=== PATIENT | female | born 1950 | race African-American/Black ===

== ENCOUNTER 2018-02-27 04:10 | Emergency (ER) | payer MEDICARE, OTHER ==
[~2018-02-27] VITALS: Ht 160 cm; Wt 59.6 kg
[2018-02-27] MEDS ORDERED: ASPIRIN 81 MG CHEW TAB PO STA (04:29)
[2018-02-27] MEDS ORDERED: BENICAR20 MG PO (04:46)
[2018-02-27] MEDS ORDERED: ATENOLOL50 MG PO (04:46)
[2018-02-27] MEDS ORDERED: AMLODIPINE BESY10 MG PO (04:46)
[2018-02-27 05:22] VITALS: BP 158/90
== END 2018-02-27 05:34 | disposition home or self-care (01) ==
LOC: FSED 04:10
DX: R00.2 Palpitations (principal); I10 Essential (primary) hypertension
CPT/HCPCS: 71046; 80053; 81003; 82553; 83880; 84484; 85025; 93005; 99284

== ENCOUNTER 2018-04-11 05:26 | Emergency (ER) | payer MEDICARE ==
[~2018-04-11] VITALS: Ht 160 cm; Wt 59.4 kg
[~2018-04-11 05:26] MED LIST: AMLODIPINE BESY10 MG PO; ATENOLOL50 MG PO; BENICAR20 MG PO
== END 2018-04-11 06:19 | disposition home or self-care (01) ==
LOC: FSED 05:26
DX: I10 Essential (primary) hypertension (principal); Z78.0 Asymptomatic menopausal state
CPT/HCPCS: 99282

== ENCOUNTER 2018-10-13 23:30 | Emergency (ER) | payer MEDICARE ==
[~2018-10-13] VITALS: Ht 160 cm; Wt 59.4 kg
--- OUTSIDE RECORDS SUMMARY | 2018-10-13 23:34 | XMS REPORT ---
Author Author [facility] Address Unknown Phone Unavailable Care Team Providers Care Time Study Engineer Name Role Phone Unavailable Unavailable Payers Payer Name Policy Type Policy Number Effective Date Expiration Date Problems This patient has no known problems. Allergies, Adverse Reactions, Alerts Allergy Name Allergy Type Status Severity Reaction(s) Onset Date Inactive Date Treating Clinician Comments psyllium seed DA Active U 2011-11-16 00:00:00 sucrose DA Active U 2011-11-16 00:00:00 psyllium husk DA Active U 2011-11-16 00:00:00 dextrose DA Active U 2011-11-16 00:00:00 tetracycline DA Active U 2011-11-16 00:00:00 psyllium DA Active U 2011-11-16 00:00:00 LACTOSE DA Active U 2009-04-10 00:00:00 Medications This patient has no known medications.
== END 2018-10-14 01:38 | disposition home or self-care (01) ==
LOC: FSED 23:30
DX: R00.2 Palpitations (principal); I10 Essential (primary) hypertension; Z88.8 Allergy status to other drugs, medicaments and biological substances; F17.210 Nicotine dependence, cigarettes, uncomplicated; R20.2 Paresthesia of skin
CPT/HCPCS: 93005; 99283

== ENCOUNTER 2019-04-08 14:03 | Emergency (ER) | payer MEDICARE ==
[~2019-04-08] VITALS: Ht 160 cm; Wt 60.0 kg
[2019-04-08] MEDS ORDERED: KETOROLAC TROMETHAMINE 30 MG/ML VIAL ONE (14:40)
[2019-04-08] MEDS ORDERED: KETOROLAC TROMETHAMINE 60 MG/2 ML VIAL IM ONE (14:45)
[2019-04-08] MEDS ORDERED: OS-CAL 500+D T1 EACH (15:11)
[2019-04-08] MEDS ORDERED: VITAMIN D1000 UNI1 PO (15:11)
[2019-04-08] MEDS ORDERED: CALCIUM CARBON500 MG PO (15:11)
[2019-04-08] MEDS ORDERED: FISH OIL 1,2001 EACH (15:11)
[2019-04-08] MEDS ORDERED: VITAMIN C1000 MG (15:11)
[2019-04-08] MEDS ORDERED: MULTIVITAMINS1 EAC7 (15:11)
[2019-04-08] MEDS ORDERED: ASPIRIN EC81 MG PO (15:11)
[2019-04-08] MEDS ORDERED: VITAMIN E400 UNIT PO (15:11)
[2019-04-08 15:26] VITALS: BP 121/77
== END 2019-04-08 15:33 | disposition home or self-care (01) ==
LOC: FSED 14:03
DX: M79.622 Pain in left upper arm (principal); I10 Essential (primary) hypertension
CPT/HCPCS: 96372; 99282; J1885 ×2

== ENCOUNTER 2020-04-15 12:21 | Emergency (ER) | payer MEDICARE ==
[~2020-04-15] VITALS: Ht 160 cm; Wt 56.2 kg
[~2020-04-15 12:21] MED LIST changes: +ASPIRIN EC81 MG PO; +CALCIUM CARBON500 MG PO; +FISH OIL 1,2001 EACH; +MULTIVITAMINS1 EAC7; +OS-CAL 500+D T1 EACH; +VITAMIN C1000 MG; +VITAMIN D1000 UNI1 PO; +VITAMIN E400 UNIT PO
[2020-04-15] MEDS ORDERED: KETOROLAC TROMETHAMINE 60 MG/2 ML VIAL IM ONE (13:00)
[2020-04-15] MEDS ORDERED: ULTRAM50 MG PO (13:07)
--- NOTE | 2020-04-15 13:14 | Diagnostic Imaging Report ---
Exam: Left hip radiographs-2 views History: Pain. Comparison: None. Findings/Impression: No evidence of acute fracture, malalignment, or soft tissue abnormality. Mild degenerative changes in the left hip. Signed by: Dr. J Luis Fregoso MD on 04/15/2020 1:11 PM
--- NOTE | 2020-04-15 13:24 | Emergency Department Note ---
History of Present Illnes History of Present Illness Chief Complaint: Extremity Trauma/Pain History of Present Illness This is a 70 year old female with 2 week of progressively worsening left hip pain. Stopped Phosmax as possible cause, but has not improved. Historian: Patient Arrival Mode: Car Felt Cutter Required: No Onset (how long ago): week(s) Radiation: Reports distal (down lateral left leg to ankle) Severity: moderate Onset quality: gradual Duration (how long): week(s) Timing of current episode: constant Progression: worsening Context: Denies recent illness, Denies recent immobilization, Denies trauma/injury Relieving factors: none Exacerbating factors: other (weight bearing) Associated symptoms: Reports other (No numbness, tingling, weakness of leg.); Denies confusion, Denies cough, Denies fever/chills, Denies nausea/vomiting, Denies shortness of breath Past Medical/Family History Physician Review I have reviewed the patient's past medical and family history. Any updates have been documented here. Past Medical History Recent Fever: No Clinical Suspicion of Infectio: No New/Unexplained Change in Ment: No Past Medical History: Hypertension Past Surgical History: None Other Surgery: colonoscopy 2017 Other Last Tetanus: UTD Review of Systems Review of Systems Constitutional: Denies chills, Denies fever EENTM: Denies throat pain Cardiovascular: Denies chest pain, Denies palpitations Gastrointestinal: Denies abdominal pain Genitourinary: Denies dysuria, Denies hematuria Musculoskeletal: Reports as per HPI Integumentary: Denies rash Neurological: Denies headache, Denies numbness, Denies paresthesia, Denies tingling Psychological: Denies anxiety Endocrine: Denies increased thirst, Denies increased urination Hematological/Lymphatic: Denies swollen glands Physical Exam Related Data Allergies: Coded Allergies: losartan (Verified Allergy, Mild, 02/27/18) psyllium (Verified Allergy, Mild, 02/27/18) tetracycline (Verified Allergy, Mild, 02/27/18) cefdinir (Verified Allergy, Unknown, 04/08/19) levofloxacin (Verified Allergy, Unknown, 04/08/19) Triage Vital Signs Vital Signs Date Time Temp Pulse Resp B/P (MAP) Pulse Ox O2 Delivery O2 Flow Rate FiO2 04/15/20 12:41 97.7 70 14 113/70 100 Room Air Physical Exam CONSTITUTIONAL Constitutional: Present well-developed, Present well-nourished HENT HENT: Present normocephalic, Present atraumatic, Present oropharynx clear/moist, Present nose normal HENT L/R: Present left ext ear normal, Present right ext ear normal EYES Eyes: Reports PERRL, Reports conjunctivae normal NECK Neck: Present ROM normal PULMONARY Pulmonary: Present effort normal, Present breath sounds normal CARDIOVASCULAR Cardiovascular: Present regular rhythm, Present heart sounds normal, Present capillary refill normal, Present normal rate GASTROINTESTINAL Abdominal: Present soft, Present nontender, Present bowel sounds normal GENITOURINARY SKIN Skin: Present warm, Present dry MUSCULOSKELETAL Musculoskeletal: Present ROM normal, Present other (FROM of left hip. Left hip non-tender.); Absent edema, Absent deformity, Absent tenderness, Absent swelling NEUROLOGICAL Neurological: Present alert, Present oriented x 3, Present no gross motor or sensory deficits PSYCHOLOGICAL Psychological: Present mood/affect normal, Present judgement normal Results Imaging Imaging Comments Exam: Left hip radiographs-2 views History: Pain. Comparison: None. Findings/Impression: No evidence of acute fracture, malalignment, or soft tissue abnormality. Mild degenerative changes in the left hip. Signed by: Dr. J Luis Fregoso MD on 04/15/2020 1:11 PM Procedures Smoking Cessation Time spent with patient: 00:05 Patient acknowledges need for: Yes Additional comments Made aware of health risks of smoking, and educated on smoking cessation. Gave printed instructions and followup. Assessment & Plan Medical Decision Making MDM Patient with no history trauma, but ordered XRAY due to patient's history of osteoporosis increasing risk of fracture from low impact. With no back pain and neurologically intact LEs, does not warrant emergency MRI. Reassessment Reassessment time: 13:13 Reassessment Pain improved with Toradol Assessment & Plan Final Impression: (1) Sciatica Depart Disposition: HOME, SELF-CARE Last Vital Signs Date Time Temp Pulse Resp B/P (MAP) Pulse Ox O2 Delivery O2 Flow Rate FiO2 04/15/20 12:41 97.7 70 14 113/70 100 Room Air Home Meds Active Scripts Tramadol Hcl (ULTRAM) 50 Mg Tablet, 50 MG PO Q6HR PRN for SEVERE PAIN (7-10), #14 TAB Prov:LEOPOLDO DIETRICH MD 04/15/20 Reported Medications Ascorbic Acid (VITAMIN C) 1,000 Mg Tablet, DAILY 04/08/19 Cholecalciferol (Vitamin D3) (VITAMIN D) 1,000 Unit Tablet, 1000 UNIT PO DAILY, #30 TAB 04/08/19 Vitamin E Acetate (VITAMIN E) 400 Unit Capsule, 400 UNITS PO DAILY, #30 CAP 04/08/19 Calcium Carbonate/Vitamin D3 (OS-LADARIUS 500+D TABLET) 1 Each Tablet, 1200 MG DAILY, #30 TAB 04/08/19 Calcium Carbonate (CALCIUM CARBONATE) 500 Mg Tablet, MG PO, TAB 04/08/19 Fish Oil/Dha/Epa (FISH OIL 1,200 MG FISH OIL) 1 Each Capsule, DAILY 04/08/19 Multivitamin (MULTIVITAMINS) 1 Each Capsule, DAILY 04/08/19 Aspirin (ASPIRIN EC) 81 Mg Tablet.dr, 81 MG PO DAILY, #30 TAB 04/08/19 Olmesartan Medoxomil (BENICAR) 20 Mg Tablet, 20 MG PO DAILY, #30 TAB 02/27/18 Atenolol (ATENOLOL) 50 Mg Tablet, 25 MG PO DAILY 02/27/18 Amlodipine Besylate (AMLODIPINE BESYLATE) 10 Mg Tablet, 10 MG PO DAILY, #30 TAB 02/27/18 Medications in the ED Ketorolac Tromethamine 60 mg ONCE ONCE IM ; Start 04/15/20 at 13:00; Stop 04/15/20 at 13:01; Status UNLEOPOLDO DEL RIO MD Apr 15, 2020 13:06
--- OUTSIDE RECORDS SUMMARY | 2020-04-15 16:53 | XMS REPORT | Continuity of Care Document ---
Author Author [facility] t Organization [facility] Address [address] [place] [address] Phone Unavailable Care Team Providers Care Tipple Tender Name Role Phone NONSTAFF PCP Unavailable Wolf DIETRICH Attphys Unavailable Filippo CRAVEN, [facility] Attphys Payers Payer Name Policy Type Policy Number Effective Date Expiration Date Ariadna andre [facility] Medicare Complete [id number] 2017 00:00:00 [facility] Problems Condition Name Condition Details Condition Category Status Onset Date Resolution Date Last Treatment Date Treating Clinician Comments Source Sciatica Problem Active [facility] Allergies, Adverse Reactions, Alerts Allergy Name Allergy Type Status Severity Reaction(s) Onset Date Inacti ve Date Treating Clinician Comments Source tetracycline DA Active U 2019-05-22 00:00:00 [facility] levofloxacin DA Active U 2019-05-22 00:00:00 [facility] cefdinir DA Active U 2019-05-22 00:00:00 [facility] psyllium FA Active U 2019-05-22 00:00:00 [facility] Levofloxacin Allergy to substance Active 2019-04-08 00:00:0 0 [facility] Cefdinir Allergy to substance Active 2019-04-08 00:00:00 [facility] Tetracycline Allergy to substance Active Mild 2018-02-27 00:00:0 0 [facility] Losartan Allergy to substance Active Mild 2018-02-27 00:00:00 [facility] Psyllium Allergy to substance Active Mild 2018-02-27 00:00:00 [facility] psyllium seed DA Active U 2011-11-16 00:00:00 [facility] sucrose DA Active U 2011-11-16 00:00:00 [facility] psyllium husk DA Active U 2011-11-16 00:00:00 [facility] dextrose DA Active U 2011-11-16 00:00:00 [facility] tetracycline DA Active U 2011-11-16 00:00:00 [facility] psyllium DA Active U 2011-11-16 00:00:00 [facility] psyllium FA Active U 2011-11-16 00:00:00 [facility] LACTOSE DA Active U 2009-04-10 00:00:00 [facility] Social History Social Habit Start Date Stop Date Quantity Comments Source Sex Assigned At 1950 00:00:00 1950 00:00:00 Female [facility] Medications Ordered Medication Name Filled Medication Name Start Date Stop Da te Current Medication? Ordering Clinician Indication Dosage Frequency Signature (SIG) Comments Components Source Tramadol Hcl (Ultram) 50 Mg TABLET Tramadol Hcl (Ultram) 50 Mg TABLET 2020-04-15 13:07:00 Yes 50 Every 6 Hours as needed for S evere Pain (7-10) [facility] Amlodipine Besylate Amlodipine Besylate Yes 10 Daily [facility] Ascorbic Acid (Vitamin C) 1,000 Mg TABLET Ascorbic Aci d (Vitamin C) 1,000 Mg TABLET Yes Daily [facility] Aspirin (Aspirin Ec) 81 Mg TABLET. Aspirin (Aspirin Ec) 81 Mg TAB LET. Yes 81 Daily [facility] Atenolol Atenolol Yes 25 Daily [facility] Calcium Carbonate Calcium Carbonate Yes [facility] Calcium Carbonate/Vitamin D3 (Os-Gustavo 500+D Tablet) 1 E ach TABLET Calcium Carbonate/Vitamin D3 (Os-Gustavo 500+D Tablet) 1 Each TABLET Yes 1200 Daily [facility] Cholecalciferol (Vitamin D3) (Vitamin D) 1,000 Unit TA BLET Cholecalciferol (Vitamin D3) (Vitamin D) 1,000 Unit TABLET Yes 1000 Daily [facility] Fish Oil/Dha/Epa (Fish Oil 1,200 Mg Fish Oil) 1 Each C APSULE Fish Oil/Dha/Epa (Fish Oil 1,200 Mg Fish Oil) 1 Each CAPSULE Yes Daily [facility] Multivitamin (Multivitamins) 1 Each CAPSULE Multivitam in (Multivitamins) 1 Each CAPSULE Yes Daily [facility] Olmesartan Medoxomil (Benicar) 20 Mg TABLET Olmesartan Medoxomil (Benicar) 20 Mg TABLET Yes 20 Daily [facility] Vitamin E Acetate (Vitamin E) 400 Unit CAPSULE Vitamin E Acetate (Vitamin E) 400 Unit CAPSULE Yes 400 Daily [facility] Vital Signs Vital Name Observation Time Observation Value Comments Source Weight 2020-04-15 12:41:00 124 [lb_av] [facility] BMI (Body Mass Index) 2020-04-15 12:41:00 22.0 kg/m2 [facility] Procedures This patient has no known procedures. Plan of Care Planned Activity Planned Date Details Comments Source Instructions Sciatica [facility] Instructions [facility] Encounters Start Date/Time End Date/Time Encounter Type Admission Type Attendi [facility] Care Department Encounter ID Source 2020-04-15 13:24:00 2020-04-15 13:25:00 Departed Emergency Room LEOPOLDO DIETRICH [facility] [id number] [facility] 2020-04-09 00:00:00 2020-04-09 00:00:00 Patient Secure [facility] [id number] 2020-03-03 00:00:00 2020-03-03 00:00:00 Lolis Sutherland [facility] [id number] 2020-01-03 00:00:00 2020-01-03 00:00:00 [facility] [id number] 2019-04-08 14:03:00 2019-04-08 15:33:00 Departed Emergency Room [facility] [id number] [facility] Patients [facility] 2018-10-13 23:30:00 2018-10-14 01:38:00 Departed Emergency Room [facility] [id number] [facility] Patients [facility] 2018-04-11 05:26:00 2018-04-11 06:19:00 Departed Emergency Room [facility] [id number] [facility] Patients [facility] 2018-02-27 04:10:00 2018-02-27 05:34:00 Departed Emergency Room [facility] [id number] [facility] Results Test Description Test Time Test Comments Results Result Comments Source HIP 2 VIEW - [facility] 2020-04-15 13:09:00 [place] [address] Patient Name: BUZZ GOMEZ MR #: [id number] : 1950 Age/Sex: 70/F Req #: [id number] Adm Physician: Ordered by: LEOPOLDO DIETRICH MD Report #: [id number] Location: FS Room/Bed: Procedure: [id number] HOPD/HIP 2 VIEW LT - [facility] Exam Date: 04/15/20 Exam Time: 1306 REPORT STATUS: Signed Exam: Left hip radiographs-2 views History: Pain. Comparison: None. Findings/Impression: No evidence of acute fracture, malalignment, or soft tissue abnormality. Mild degenerative changes in the left hip. Signed by: Dr. Sydni Penny MD on 03/21 1:11 PM Dictated By: SYDNI PENNY MD 1311 Transcribed By: CAROLINE on 04/15/20 1311 COPY TO: LEOPOLDO DIETRICH MD TROPONIN-I 2019-05-22 11:34:00 Test Item TROPONIN-I (test code = TROPI) <0.015 ng/mL 0-0.045 N COMMENTS TO CONTROL SYSTEMS DEVELOPER: COLLECT 3 HOURS AFTER PREVIOUS [id number] 08:25:00* Test Item Value Reference Range Interpretation Comments TROPONIN-I (test code = TROPI) <0.015 ng/mL 0-0.045 N COMMENTS TO CONTROL SYSTEMS DEVELOPER: COLLECT 3 HOURS AFTER PREVIOUS SAMPLECBC W/O [id number] 02:11:00* Test Item Value Reference Range Interpretation Comments WHITE BLOOD CELL (test code = WBC) 12.3 K/mm3 4.5-12.5 N RED BLOOD CELL (test code = RBC) 4.62 mill/mm3 3.7-5.2 N HEMOGLOBIN (test code = HGB) 14.4 gram/dL 11.5-15.5 N HEMATOCRIT (test code = HCT) 44.8 % 36.0-46.0 N MEAN CELL VOLUME (test code = MCV) 97.0 fL 80-98 N MEAN CELL HGB (test code = MCH) 31.2 picogram 27.0-33.0 N MEAN CELL HGB CONCETRATION (test code = MCHC) 32.1 gram/dL 33.0-36. 0 L RED CELL DISTRIBUTION WIDTH (test code = RDW) 13.6 % 11.6-16. 2 N PLATELET COUNT (test code = PLT) 217 K/mm3 150-450 N MEAN PLATELET VOLUME (test code = MPV) 11.0 fL 6.7-11.0 N CBC W/O [id number] 02:05:00* Test Item Value Reference Range Interpretation Comments WHITE BLOOD CELL (test code = WBC) K/mm3 4.5-12.5 RED BLOOD CELL (test code = RBC) mill/mm3 3.7-5.2 HEMOGLOBIN (test code = HGB) 14.4 gram/dL 11.5-15.5 N HEMATOCRIT (test code = HCT) 44.8 % 36.0-46.0 N MEAN CELL VOLUME (test code = MCV) fL 80-98 MEAN CELL HGB (test code = MCH) picogram 27.0-33.0 MEAN CELL HGB CONCETRATION (test code = MCHC) gram/dL 33.0-36. 0 RED CELL DISTRIBUTION WIDTH (test code = RDW) % 11.6-16. 2 PLATELET COUNT (test code = PLT) K/mm3 150-450 MEAN PLATELET VOLUME (test code = MPV) fL 6.7-11.0 BASIC METABOLIC [id number] 01:37:00* Test Item Value Reference Range Interpretation Comments SODIUM (test code = NA) 144 mmol/L 136-145 N POTASSIUM (test code = K) 3.2 mmol/L 3.5-5.1 L CHLORIDE (test code = CL) 110.0 mmol/L 98-107 H CARBON DIOXIDE (test code = CO2) 26.0 mmol/L 21-32 N ANION GAP (test code = GAP) 11.2 10-20 N GLUCOSE (test code = GLU) 109 mg/dL 74-106 H BLOOD UREA NITROGEN (test code = BUN) 6 mg/dL 7-18 L GLOMERULAR FILTRATION RATE (test code = GFR) > 60 mL/min >=60 Estimated GFR by using Modified MDRD formula.Chronic kidney disease is defined as either kidney damageor GFR <60 mL/min/1.73 m2 for >3 months. CREATININE (test code = CREAT) 0.90 mg/dL 0.55-1.02 N Note change in reference range due to change in reagent. BUN/CREATININE RATIO (test code = BUN/CREA) 6.7 10-20 L CALCIUM (test code = CA) 9.2 mg/dL 8.5-10.1 N [id number] 01:37:00* Test Item Value Reference Range Interpretation Comments TROPONIN-I (test code = TROPI) <0.015 ng/mL 0-0.045 N BASIC METABOLIC [id number] 01:05:00* Test Item Value Reference Range Interpretation Comments SODIUM (test code = NA) 144 mmol/L 136-145 N POTASSIUM (test code = K) 3.2 mmol/L 3.5-5.1 L CHLORIDE (test code = CL) 110.0 mmol/L 98-107 H CARBON DIOXIDE (test code = CO2) mmol/L 21-32 ANION GAP (test code = GAP) 10-20 GLUCOSE (test code = GLU) mg/dL 74-106 BLOOD UREA NITROGEN (test code = BUN) mg/dL 7-18 GLOMERULAR FILTRATION RATE (test code = GFR) mL/min >=60 CREATININE (test code = CREAT) mg/dL 0.55-1.02 BUN/CREATININE RATIO (test code = BUN/CREA) 10-20 CALCIUM (test code = CA) mg/dL 8.5-10.1 [id number] 01:05:00* Test Item Value Reference Range Interpretation Comments TROPONIN-I (test code = TROPI) ng/mL 0-0.045 - XR CHEST 1 [id number] 01:04:00 FAX: Allen Gates MD [phone] [place]: [address] St: REG Name: Steve ROSASBUZZ [facility] : [birth year] Age/S: 69/F [address] [facility] Unit #: [id number] Loc: [place] [address] Phys: Allen Gates MD Acct: [id number] Dis Date: Status: REG ER PHONE #: [phone] Exam Date: 05/22/2019 010 FAX #: [phone] Reason: CHEST PAIN EXAMS: CPT CODE: [id number] XR CHEST 1 V [id number] AFTER HOURS SERVICE ON: 05/22/2019 1:04 AM AP Portable Chest Location Code M12 HISTORY: CHEST PAIN FINDINGS: There are no in filtrates. There are no pleural effusions. There is no pneumothorax. Cardi ac silhouette and mediastinum appear within normal limits. IMPRESSION: No active pulmonary findings. * * at 0104 Reported and signed by: Go Christina M.D. CC: Allen Gates MD Technologist: RT PAM(R) Trnscrd Date/Time/By: 05/22/2019 (0104) : By: [email or web address] Orig Print D/T: S: 05/22/2019 (0107) PAGE 1 Signed Report
== END 2020-04-15 13:25 | disposition home or self-care (01) ==
LOC: FSED 13:24
DX: M25.552 Pain in left hip (principal); M54.32 Sciatica, left side; I10 Essential (primary) hypertension
CPT/HCPCS: 73502; 99283; J1885

== ENCOUNTER 2022-10-11 15:18 | Emergency (ER) | payer MEDICARE ==
[~2022-10-11] VITALS: Ht 160 cm; Wt 56.2 kg
[~2022-10-11 15:18] MED LIST changes: +ULTRAM50 MG PO
[2022-10-11] MEDS ORDERED: MECLIZINE HCL 12.5 MG TAB PO STA (16:31)
[2022-10-11] MEDS ORDERED: MECLIZINE HCL 12.5 MG TAB ONE (16:49)
[2022-10-11] MEDS ORDERED: SODIUM CHLORIDE 0.9% 100 ML ONE (17:13)
[2022-10-11] MEDS ORDERED: IOPAMIDOL 370 MG/ML 100 ML INFUS..BTL INJ ONE (17:14)
[2022-10-11] MEDS ORDERED: ANTIVERT25 M1 PO (19:21)
[2022-10-11] MEDS ORDERED: PREDNISONE20 MG PO (19:21)
[2022-10-11 19:32] VITALS: BP 133/72
== END 2022-10-11 19:32 | disposition home or self-care (01) ==
LOC: FSED 15:28
DX: R42 Dizziness and giddiness (principal); H61.23 Impacted cerumen, bilateral; I10 Essential (primary) hypertension; M81.0 Age-related osteoporosis without current pathological fracture
CPT/HCPCS: 70496; 70498; 80048; 80076; 81003; 82553; 83880; 84484; 85025; 93005; 99284; J7050; J8597; Q9967

== ENCOUNTER 2024-02-05 00:40 | Emergency (ER) | payer MEDICARE ==
[~2024-02-05] VITALS: Ht 160 cm; Wt 57.6 kg
[~2024-02-05 00:40] MED LIST changes: +ANTIVERT25 M1 PO; +PREDNISONE20 MG PO
[2024-02-05 00:44] VITALS: PULSE 76; RESP 16; TEMP 98.5; O2SAT 100
[2024-02-05] MEDS ORDERED: ULTRAM 50MG50 MG PO (01:04)
== END 2024-02-05 01:25 | disposition home or self-care (01) ==
LOC: FSED 00:43
DX: M54.32 Sciatica, left side (principal); I10 Essential (primary) hypertension; M81.0 Age-related osteoporosis without current pathological fracture; H40.9 Unspecified glaucoma
CPT/HCPCS: 99282